=== PATIENT | male | born 1990 | race African-American/Black ===

== ENCOUNTER 2017-02-26 03:41 | Emergency (ER) | payer SELFPAY ==
[~2017-02-26] VITALS: Ht 175.3 cm; Wt 81.6 kg
[2017-02-26 04:00] VITALS: BP 132/87
[2017-02-26] MEDS ORDERED: IPRATROPIUM BROMIDE (0.02%) 0.5MG/2.5ML NEB HHN STA (04:38)
[2017-02-26] MEDS ORDERED: PREDNISONE 20MG TABLET PO STA (04:38)
[2017-02-26] MEDS ORDERED: ALBUTEROL (0.083%) 2.5MG/3ML NEB HHN STA (04:38)
== END 2017-02-26 05:41 | disposition home or self-care (01) ==
LOC: ER 03:41
DX: J45.901 Unspecified asthma with (acute) exacerbation (principal)
CPT/HCPCS: 94640; 99283; J7512; J7611; Z7610